=== PATIENT | female | born 1955 | race Asian ===

== ENCOUNTER 2025-02-02 06:57 | Day surgery (SDC) | payer OTHER, MEDICAID ==
[~2025-02-02] VITALS: Ht 167.6 cm; Wt 176.0 kg
[~2025-02-02 06:57] MED LIST: ASHW1CAP PO; ERGO2000 PO; EZET-10 PO; FERR-7 PO; KRIL1CAP14 PO; LISI10TA34 PO; MAGN400T40 OR; OMEG-11 PO; POTA1080 PO; SACC1CAP3 PO; THIA250T4 PO
[2025-02-02] MEDS ORDERED: fentaNYL CITRATE 100 MCG/2 ML VL IV ONE (08:30)
[2025-02-02] MEDS ORDERED: MIDAZOLAM HCL 2MG/2ML 2ml VIAL (1mg/ml) IV ONE (08:30)
[2025-02-02] MEDS ORDERED: LIDOCAINE VISCOUS 2% 15ML UD MT ONE (08:30)
--- NOTE | 2025-02-02 09:48 | DVHOP2 ---
Operative Report Trans-Esophageal Echocardiogram PROCEDURE REPORT Date of Service: 02/02/2025 Utility Bill Collector: Pillo Meng MD PROCEDURE PERFORMED: Transesophageal echocardiogram, conscious sedation administration and supervision, more than 15 minutes. Intra cardiac bubble study. PREOPERATIVE DIAGNOSES: r/o Valvular heart disease. DESCRIPTION OF PROCEDURE: The patient signed informed consent understanding risks, benefits and alternatives of the procedure, she wished to proceed. The patient was given 15 mL of oral viscous lidocaine. She was placed in a left lateral decubitus position and conscious sedation was administered per medical laboratory technicians protocol (1 mg of Versed and 25 mcg of Fentanyl). I administered a bite block into her mouth and a DARIUS probe into the mid esophagus without any difficulties or complications. Multiple planar images were obtained. Bubble study was also performed. At the completion of procedure, DARIUS probe was removed and there were no immediate complications. Vitals signs were stable throughout the procedure. FINDINGS: 1. Left ventricle: Mild concentrated Left ventricular hypertrophy was seen. LVEF was 60%. There was no gross wall motion abnormality seen. 2. Right ventricle: RV was normal sized with normal systolic function. 3. Left atrium: LA was mildly enlarged 4. Right atrium: RA was normal sized. 5. Mitral valve: Trace Mitral regurgitation, no significant stenosis, normal functioning valve. There was no vegetation 6. Left atrial appendage: No evidence of thrombus. 7. Aortic valve: Trileaflet valve. Mild stenosis was seen. Planinometry of Aortic valve revealed CECILY of 1.8 cm. No Aortic Insufficiency was identified. There was no vegetation 8. Pulmonic valve: Trivial pulmonic insufficiency. No significant stenosis. 9. Tricuspid valve: Trace tricuspid regurgitation. There was no vegetation 10. Interatrial septum: Negative color flow for shunt was observed. Bubble study was performed: negative for shunt 11. Pericardium: No significant effusion. 12. Thoracic aorta: No significant plaquing. Mild Aortic Stenosis PILLO MENG MD Feb 02, 2025 09:48
== END 2025-02-02 15:00 | disposition home or self-care (01) ==
LOC: CATH 06:57 → EDSTATUS 10:23 → CATH 15:00
PROVIDERS: ATTEND Internal Medicine Cardiovascular Disease
DX: I35.0 Nonrheumatic aortic (valve) stenosis (principal); I37.1 Nonrheumatic pulmonary valve insufficiency; E11.9 Type 2 diabetes mellitus without complications; I10 Essential (primary) hypertension; Z98.890 Other specified postprocedural states; Z88.5 Allergy status to narcotic agent; Z79.899 Other long term (current) drug therapy; Z91.013 Allergy to seafood
CPT/HCPCS: 93312; J2250; J3010; 99152